=== PATIENT | female | born 1950 ===

== ENCOUNTER 2023-09-05 07:40 | Outpatient (CLI) | payer MEDICARE ==
--- NOTE | 2023-09-05 22:03 | DEXA Report ---
PROCEDURE: Dexa Spine and/or Hip INDICATIONS: POST MENOPAUSAL TECHNIQUE: Dual energy x-ray absorptiometry (DXA) was performed on a Pix4D System. Regions measur ed are the AP Spine, femoral neck, and if needed forearm. COMPARISON: None FINDINGS: Lumbar Spine: Bone Mineral Density: 1.131 g/cm/cm,T score: -0.4. Left Femoral Neck: Bone Mineral Density: 1.095 g/cm/cm, T score: 0.4. Left Hip: Bone Mineral Density: 1.042 g/cm/cm,T score: 0.3. (T score greater or equal to -1.0: NORMAL) (T score from -1.1 to -2.4: OSTEOPENIA) (T score less than or equal to -2.5 to: OSTEOPOROSIS) Impression: By WHO criteria, this patient has normal bone mineral density Patients with diagnosis of osteoporosis or osteopenia should have regular bone mineral density assess ment. For those eligible for Medicare, routine testing is allowed once every 2 years. Testing frequ ency can be increased for patients who have rapidly progressing disease or for those who are receivin g medical therapy to restore bone mass. Reviewed by: Heladio Garcia MD on 09/05/2023 10:02 PM PDT Approved by: Heladio Garcia MD on 09/05/2023 10:02 PM PDT Station ID: [id number]
== END 2023-09-05 07:41 | disposition home or self-care (01) ==
LOC: DI 07:40
PROVIDERS: ATTEND Physician Assistant
DX: Z78.0 Asymptomatic menopausal state (principal)

== ENCOUNTER 2023-09-05 07:44 | Outpatient (CLI) | payer MEDICARE ==
--- NOTE | 2023-09-06 10:57 | Mammography Report ---
BILATERAL DIGITAL SCREENING MAMMOGRAM 3D/2D: 09/05/2023 CLINICAL: Routine screening. No prior exams were available for comparison. There are scattered areas of fibroglandular density in both breasts (category b / 25%-50% glandular t issue). There is an oval focal asymmetry with an obscured margin in the left breast at 1 o'clock posterior de pth. No other significant masses, calcifications, or other findings are seen in either breast. IMPRESSION: INCOMPLETE: NEEDS ADDITIONAL IMAGING EVALUATION The oval focal asymmetry in the left breast is indeterminate. Additional views with possible ultrasound are recommended. Based on the Tyrer Cuzick model (a risk assessment model) the patient's lifetime risk is 3.5% and her 10 year risk is 2.2%. According to the ACR, ACS, and NCCN guidelines, an annual breast MRI exam wade g with mammogram is recommended if the patient's lifetime risk is 20% or greater. This exam was interpreted at Station ID: [id number]. NOTE: For mammograms, a report in lay terms will be sent to the patient. Approximately 15% of breast malignancies will not be visualized mammographically. In the management of a palpable breast mass, a negative mammogram must not discourage biopsy of a clinically suspicious lesion. Electronically Signed By: Gilberto Chaudhry M.D. slc/:09/05/2023 16:46:20 ACR BI-RADS Category 0: Incomplete 3340F PARENCHYMAL PATTERN: (A) - The breast(s) demonstrate(s) scattered fibroglandular densities. BI-RADS CATEGORY: (0) - 0 Mammo and [place] [id number] Immediate follow-up LATERALITY: (B)
== END 2023-09-05 07:45 | disposition home or self-care (01) ==
LOC: DI 07:44
PROVIDERS: ATTEND Physician Assistant
DX: Z12.31 Encounter for screening mammogram for malignant neoplasm of breast (principal); R92.8 Other abnormal and inconclusive findings on diagnostic imaging of breast; R92.323 Mammographic fibroglandular density, bilateral breasts

== ENCOUNTER 2023-09-05 08:35 | Outpatient (CLI) | payer MEDICARE ==
--- NOTE | 2023-09-05 20:22 | XRAY Report ---
PROCEDURE: Femur 2+V LT INDICATIONS: LEFT LEG PAIN TECHNIQUE: 2 views of the femur were acquired. COMPARISON: None. FINDINGS: Bones: No acute fractures or dislocations. No suspicious bony lesions. Moderate to severe degenerat nacho changes are seen in the left hip with joint space narrowing, subchondral sclerosis, marginal oste ophyte formation. However, this exam is not tailored for evaluation of the head. Degenerative changes in the knee are not also well evaluated, but there appears to be some degree of joint space narrowin g in the lateral compartment. Soft tissues: No suspicious soft tissue calcifications. IMPRESSION: Moderate to severe left hip osteoarthrosis. Suspected at least mild left knee osteoarthrosis. Reviewed by: Vance Acuna MD on 09/05/2023 8:21 PM PDT Approved by: Vance Acuna MD on 09/05/2023 8:21 PM PDT Station ID: [id number]
--- NOTE | 2023-09-05 20:23 | XRAY Report ---
PROCEDURE: Tib/Fib LT INDICATIONS: LEFT LEG PAIN TECHNIQUE: 2 views of the tibia and fibula were acquired. COMPARISON: None. FINDINGS: Bones: No acute fractures or dislocations. No suspicious bony lesions. Soft tissues: No suspicious soft tissue calcifications. IMPRESSION: No acute osseous abnormality. If symptoms persist or there is continued clinical concern, further britni luation with MRI or CT may be helpful. Reviewed by: Vance Acuna MD on 09/05/2023 8:22 PM PDT Approved by: Vance Acuna MD on 09/05/2023 8:22 PM PDT Station ID: [id number]
== END 2023-09-05 08:36 | disposition home or self-care (01) ==
LOC: DI 08:35
PROVIDERS: ATTEND Physician Assistant
DX: M79.605 Pain in left leg (principal); M16.12 Unilateral primary osteoarthritis, left hip; Z78.0 Asymptomatic menopausal state

== ENCOUNTER 2023-10-02 12:30 | Outpatient (CLI) | payer MEDICARE ==
--- NOTE | 2023-10-03 10:42 | Mammography Report ---
UNILATERAL LEFT DIGITAL DIAGNOSTIC MAMMOGRAM 3D/2D WITH LATEROMEDIAL SPOT COMPRESSION: 10/02/2023 CLINICAL: Patient returns today to evaluate a focal asymmetry in the left breast. Comparison is made to exam dated: 09/05/2023 mammogram - [facility]. There are scattered areas of fibroglandular density in the left breast (category b / 25%-50% glandula r tissue). There is a 7 mm oval equal density asymmetry in the left breast at 1 o'clock posterior depth. This i s persistent in the lateral view, but less so in the CC view. No other significant masses or calcifications are seen in the breast. IMPRESSION: INCOMPLETE: NEEDS ADDITIONAL IMAGING EVALUATION The 7 mm oval equal density asymmetry in the left breast most likely is a cyst but remains indetermin ate. An ultrasound is recommended. This was performed immediately following this exam. Based on the Tyrer Cuzick model (a risk assessment model) the patient's lifetime risk is 3.5% and her 10 year risk is 2.2%. According to the ACR, ACS, and NCCN guidelines, an annual breast MRI exam wade g with mammogram is recommended if the patient's lifetime risk is 20% or greater. This exam was interpreted at Station ID: [id number]. NOTE: For mammograms, a report in lay terms will be sent to the patient. Approximately 15% of breast malignancies will not be visualized mammographically. In the management of a palpable breast mass, a negative mammogram must not discourage biopsy of a clinically suspicious lesion. Electronically Signed By: Yandy stoddard/:10/02/2023 13:39:26 ACR BI-RADS Category 0: Incomplete 3340F PARENCHYMAL PATTERN: (A) - The breast(s) demonstrate(s) scattered fibroglandular densities. BI-RADS CATEGORY: (0) - 0 Ultrasound [id number] Immediate follow-up LATERALITY: (B)
--- NOTE | 2023-10-03 10:42 | Ultrasound Report ---
LIMITED ULTRASOUND OF LEFT BREAST: 10/02/2023 CLINICAL: Patient returns today to evaluate a focal asymmetry in the left breast. Comparison is made to exams dated: 10/02/2023 mammogram, 09/05/2023 mammogram, and 02/03/2009 mammogra [facility]. Ultrasound of the left breast 1-2 o'clock region was performed. Glynn scale images of the real-time examination were reviewed. No significant abnormalities were seen sonographically in the left breast. Specifically, no finding to correspond to the patient's screening mammographic abnormality. IMPRESSION: PROBABLY BENIGN No sonographic correlate to the screening mammogram finding. A follow-up mammogram in 6 months is rec ommended to demonstrate stability. Findings and recommendations were conveyed to the patient at time of exam. This exam was interpreted at Station ID: [id number]. Electronically Signed By: Yandy stoddard/:10/02/2023 13:38:25 Ultrasound BI-RADS: 3 Probably benign BI-RADS CATEGORY: (3) - 3 Mammogram [id number] 6 month follow-up LATERALITY: (L)
== END 2023-10-02 12:31 | disposition home or self-care (01) ==
LOC: DI 12:30
PROVIDERS: ATTEND Physician Assistant
DX: R92.8 Other abnormal and inconclusive findings on diagnostic imaging of breast (principal); R92.322 Mammographic fibroglandular density, left breast